=== PATIENT | female | born 1950 | race Caucasian/White ===

== ENCOUNTER 2019-05-19 09:53 | Emergency (ER) | payer MEDICARE, OTHER ==
--- NOTE | 2019-05-19 10:58 | ED ---
Lower Extremity - HPI Summary HPI Summary: Patient is a 69 y/o F w/ Hx of right leg chronic venous insufficiency who presents to [facility] with complaints of right calf pain. Pain onset yesterday, 03/28, and worsened this morning, 05/19/19. Weight bearing and ambulation aggravate Sx, lying flat alleviates Sx. Patient is concerned for blood clot. Recent long periods of travel are denied. On triage, pain is rated 5/10. Home medications and allergies are reviewed. - History of Current Complaint Chief Complaint: EDExtremityLower Stated Complaint: PAIN IN RT LEG PER PT Time Seen by Provider: 05/19/19 10:38 Hx Obtained From: Patient Mechanism Of Injury: Other - no CHLOÉ reported Onset of Pain: Days, Prior to Arrival Onset/Duration: Still Present Severity Initially: Mild Severity Currently: Moderate Pain Intensity: 5 Pain Scale Used: 0-10 Numeric Timing: Constant - right calf, Lasting Days Associated Signs And Symptoms: Positive: Other - right calf pain. Negative: Fever - 99.3 F temp on vitals Aggravating Factor(s): Ambulation, Weight Bearing Alleviating Factor(s): Rest - Allergies/Home Medications Allergies/Adverse Reactions: Allergies Allergy/AdvReac Type Severity Reaction Status Date / Time kiwi Allergy Tingling Verified 05/19/19 09:58 shrimp Allergy Tingling Verified 05/19/19 09:58 PMH/Surg Hx/FS Hx/Imm Hx Cardiovascular History: Reports: Other Cardiovascular Problems/Disorders - chronic venous insufficiency Sensory History: Denies: Hx Legally Blind, Hx Deafness Opthamlomology History: Denies: Hx Legally Blind EENT History: Denies: Hx Deafness - Immunization History Date of Influenza Vaccine: 2018 Infectious Disease History: No Infectious Disease History: Denies: Traveled Outside the [place] in Last 30 Days - Family History Known Family History: Negative: Blood Disorder - Social History Alcohol Use: Occasionally Substance Use Type: Reports: None Smoking Status (MU): Never Smoked Tobacco Review of Systems Negative: Fever - on vitals, temp is 99.3 F Musculoskeletal: Other - positive - right calf pain All Other Systems Reviewed And Are Negative: Yes Physical Exam - Summary Physical Exam Summary: Appearance: The patient is well-nourished in no acute distress and in no acute pain. Skin: The skin is warm and dry, and skin color reflects adequate perfusion. HEENT: The head is normocephalic and atraumatic. The pupils are equal and reactive. The conjunctivae are clear and without drainage. Nares are patent and without drainage. Mouth reveals moist mucous membranes, and the throat is without erythema and exudate. The external ears are intact. The ear canals are patent and without drainage. The tympanic membranes are intact. Neck: The neck is supple with full range of motion and non-tender. There are no carotid bruits. There is no neck vein distension. Respiratory: Chest is non-tender. Lungs are clear to auscultation and breath sounds are symmetrical and equal. Cardiovascular: Heart is regular rate and rhythm. There is no murmur or rub auscultated. There is no peripheral edema and pulses are symmetrical and equal. Abdomen: The abdomen is soft and non-tender. There are normal bowel sounds heard in all four quadrants and there is no organomegaly palpated. Musculoskeletal: There is mild varicosity and tenderness of the right calf. There is no back tenderness noted. Extremities are non-tender with full range of motion. There is good capillary refill. There is no peripheral edema. Neurological: Patient is alert and oriented to person, place and time. The patient has symmetrical motor strength in all four extremities. Cranial nerves are grossly intact. Deep tendon reflexes are symmetrical and equal in all four extremities. Psychiatric: The patient has an appropriate affect and does not exhibit any anxiety or depression. Triage Information Reviewed: Yes Vital Signs On Initial Exam: Initial Vitals Temp Pulse Resp BP Pulse Ox 99.3 F 91 16 157/80 98 05/19/19 09:55 05/19/19 09:55 05/19/19 09:55 05/19/19 09:55 05/19/19 09:55 Vital Signs Reviewed: Yes Procedures - Sedation Patient Received Moderate/Deep Sedation with Procedure: No Diagnostics - Vital Signs Vital Signs Temp Pulse Resp BP Pulse Ox 05/19/19 09:55 99.3 F 91 16 157/80 98 - Laboratory Lab Statement: Any lab studies that have been ordered have been reviewed, and results considered in the medical decision making process. - Ultrasound RIGHT LEG US Ultrasound Interpretation Completed By: Radiologist Summary of Ultrasound Findings: IMPRESSION: SUPERFICIAL THROMBOPHLEBITIS. NO RIGHT LOWER EXTREMITY DEEP VEIN THROMBOSIS. THIS REPORT WAS REVIEWED BY DR. CALLAHAN. Lower Extremity Course/Dx - Course Course Of Treatment: Ms. Dolton presented with complaint of right calf pain. She was mildly tender in the mid calf where there were clear varicosities. Ultrasound shows that she has a thrombophlebitis and she will be treated accordingly and referred back to her PCP. - Diagnoses Provider Diagnoses: Superficial thrombophlebitis of right leg Discharge ED - Sign-Out/Discharge Documenting (check all that apply): Patient Departure - discharge - Discharge Plan Condition: Stable Disposition: HOME Patient Education Materials: Superficial Thrombophlebitis (ED) Referrals: Billie Starkey DO [Primary Care Provider] - 3 Days Additional Instructions: PLEASE RETURN TO ED FOR ANY NEW OR CONCERNING SYMPTOMS. PLEASE FOLLOW UP WITH YOUR PRIMARY CARE PHYSICIAN WITHIN THREE DAYS. - Billing Disposition and Condition Condition: STABLE Disposition: Home - Attestation Statements Document Initiated by Man: Yes Documenting Scribe: STEPHANY SMALLS Provider For Whom Man is Documenting (Include Credential): PAULINE CALLAHAN MD Scribe Attestation: ISTEPHANY, scribed for PAULINE CALLAHAN MD on 05/19/19 at 1520. Scribe Documentation Reviewed: Yes Provider Attestation: The documentation as recorded by the STEPHANY lu accurately reflects the service I personally performed and the decisions made by me, PAULINE CALLAHAN MD Status of Scribe Document: Viewed
[2019-05-19 12:59] VITALS: BP 154/69
== END 2019-05-19 13:00 | disposition home or self-care (01) ==
LOC: ED 09:53
DX: I80.01 Phlebitis and thrombophlebitis of superficial vessels of right lower extremity (principal); Z91.013 Allergy to seafood; Z91.018 Allergy to other foods
CPT/HCPCS: 99282